=== PATIENT | male | born 1970 | race Caucasian/White ===

== ENCOUNTER → 2016-12-28 | Outpatient (CLI) | payer BC | LOC: BMCIMAGING 13:54 | PROVIDERS: ATTEND Podiatrist Foot & Ankle Surgery | DX: M76.61 Achilles tendinitis, right leg (principal); M79.672 Pain in left foot ==

== ENCOUNTER → 2018-07-20 | Outpatient (CLI) | payer BC | LOC: EMCIMAGING 07:49 | DX: D18.03 Hemangioma of intra-abdominal structures (principal); K59.00 Constipation, unspecified | CPT/HCPCS: 74183-PN ==